=== PATIENT | female | born 1970 | race Two or more races ===

== ENCOUNTER 2016-12-01 08:26 | Emergency (ER) | payer BC, OTHER ==
[~2016-12-01] VITALS: Ht 165.1 cm; Wt 99.8 kg
[2016-12-01] MEDS ORDERED: NKM (08:33)
[2016-12-01] MEDS ORDERED: IBUPROFEN600 MG ORAL (09:25)
[2016-12-01 09:28] VITALS: BP 121/81
--- NOTE | 2016-12-01 10:00 | Diagnostic Imaging Report ---
Indications: Left foot pain Technique: 3 views of the left foot Findings: Comparison: None. No fracture, dislocation, lytic destruction, periosteal reaction, surrounding soft tissue swelling, or other acute changes are demonstrated. Spurs emanate from the plantar and posterior aspects of calcaneus. No additional deformity, alignment abnormality, arthritic change, soft tissue calcification, or other chronic changes are demonstrated. IMPRESSION: Calcaneal enthesophytes Otherwise negative left foot series.
--- NOTE | 2016-12-01 15:01 | Emergency Room Report ---
History of Present Illness General Chief Complaint: Lower Extremity Injury Source: Patient Present Illness HPI 45-year-old female presents ED complaining of left fifth toe pain. States that yesterday she banged her toe. Notes bruising and swelling since. Pain is a 3/ 10, throbbing, nonradiating. Worse with walking. No other aggravating or relieving factors. Denies any other associated symptoms Allergies: Coded Allergies: No Known Allergies (Unverified , 12/01/16) Patient History Past Medical History: none Past Surgical History: none Pertinent Family History: none Social History: Denies: alcohol use, drug use, smoking Last Menstrual Period: Current Now: No Immunizations: UTD Reviewed Nursing Documentation: PMH: Agreed, PSxH: Agreed Nursing Documentation-PMH Past Medical History: No Stated History Review of Systems All Other Systems: negative except mentioned in HPI Physical Exam Vital Signs Date Time Temp Pulse Resp B/P Pulse Ox O2 Delivery O2 Flow Rate FiO2 12/01/16 08:30 98.8 84 16 121/81 97 Room Air Sp02 EP Interpretation: reviewed, normal General Appearance: no apparent distress, alert, GCS 15, non-toxic Head: normocephalic Eyes: bilateral eye PERRL, bilateral eye normal inspection ENT: normal ENT inspection Neck: normal inspection Respiratory: normal inspection Cardiovascular #1: normal inspection Gastrointestinal: normal inspection Rectal: deferred Genitourinary: no CVA tenderness Musculoskeletal: other - bruising/swelling L 5th toe Neurologic: alert, oriented x3, responsive, motor strength/tone normal, sensory intact, speech normal Psychiatric: normal inspection Skin: normal inspection Lymphatic: normal inspection Medical Decision Making Diagnostic Impression: Primary Impression: Toe contusion Qualified Codes: S90.122A - Contusion of left lesser toe(s) without damage to nail, initial encounter ER Course Hospital Course 45-year-old F presents to ED complaining of L 5th toe pain/bruising Differential diagnoses include: Fracture, dislocation, sprain, contusion Clinical course Patient placed on stretcher. After initial history and physical, I ordered xrays of L foot. patient declined pain meds Xrays prelim read shows no acute fracture/dislocation. likely contusion Diagnosis - toe contusion Stable and discharged to home with prescription for Motrin. apply ice, keep elevated. weight bear as tolerated. Followup with PMD. Return to ED if symptoms recur or worsen Other X-Ray Diagnostic Results Other X-Ray Diagnostic Results : X-Ray ordered: L foot # of Views/Limited Vs Complete: 3 View Indication: Pain EP Interpretation: Yes Interpretation: no dislocation, no soft tissue swelling, no fractures Impression: No acute disease Interpreting ER Provider: Christiano Mariee MD Last Vital Signs Date Time Temp Pulse Resp B/P Pulse Ox O2 Delivery O2 Flow Rate FiO2 12/01/16 09:28 98.8 16 121/81 97 Room Air 12/01/16 08:30 84 Status: improved Disposition: HOME, SELF-CARE Condition: Stable Scripts Ibuprofen* (MOTRIN*) 600 Mg Tablet 600 MG ORAL Q8H Y for For Pain, #30 TAB 0 Refills Prov: CHRISTIANO MARIEE M.D. 12/01/16 Patient Instructions: Foot Contusion CHRISTIANO MARIEE M.D. Dec 01, 2016 15:01
== END 2016-12-01 09:34 | disposition home or self-care (01) ==
LOC: EMR 08:56
DX: S90.122A Contusion of left lesser toe(s) without damage to nail, initial encounter (principal); W22.09XA Striking against other stationary object, initial encounter; Y92.9 Unspecified place or not applicable
CPT/HCPCS: 99283